=== PATIENT | female | born 1970 | race Caucasian/White ===

== ENCOUNTER 2021-02-11 10:15 | Outpatient (CLI) | payer OTHER ==
--- NOTE | 2021-02-11 11:46 | XRAY Report ---
PROCEDURE: Foot 3 View RT INDICATIONS: PAIN EDEMIA..INJURY RT FOOT TECHNIQUE: 3 views of the foot were acquired. COMPARISON: Similar study right foot 11/18/2020. FINDINGS: Bones: No dislocations. No suspicious bony lesions. There is a transverse fracture involving the d istal diaphysis of the fourth metatarsal bone, slightly angulated laterally at the fracture plane, wi th callus bridging the fracture plane, in an area previously normal in late October of this year. The p resence of callus indicates subacute fracture at some point between 11/18/2020 and the current study. Soft tissues: No tibiotalar joint effusion. Achilles tendon appears normal. IMPRESSION: Subacute fracture distal diaphysis fourth metatarsal bone, with associated slight lateral angulation abnormality and callus bridging the fracture plane. The comparison study did not show evidence of str ess reaction or stress fracture in late October of this year. Reviewed by: César Bazan MD on 02/11/2021 11:45 AM PDT Approved by: César Bazan MD on 02/11/2021 11:45 AM PDT Station ID: [id number]
== END 2021-02-11 10:16 | disposition home or self-care (01) ==
LOC: DI 10:15
PROVIDERS: ATTEND Podiatrist
DX: S92.341A Displaced fracture of fourth metatarsal bone, right foot, initial encounter for closed fracture (principal)

== ENCOUNTER 2021-03-13 14:54 | Outpatient (CLI) | payer OTHER ==
--- NOTE | 2021-03-13 17:14 | XRAY Report ---
PROCEDURE: Foot 3 View RT INDICATIONS: RIGHT 4TH METATARSAL FX TECHNIQUE: 3 views of the foot were acquired. COMPARISON: FINDINGS: Bones: Fracture lucency is less distinct indicating healing involving the fourth metatarsal distal sh aft fracture. Bridging callus again noted. No new fractures seen. Background osteoarthritic changes r edemonstrated.. No suspicious bony lesions. Soft tissues: No tibiotalar joint effusion. Achilles tendon appears normal. IMPRESSION: Continued further fourth metatarsal distal shaft fracture. Reviewed by: ANGELLA Salinas on 03/13/2021 5:13 PM PDT Approved by: César Bazan MD on 03/13/2021 5:13 PM PDT Station ID: [id number]
== END 2021-03-13 14:55 | disposition home or self-care (01) ==
LOC: DI 14:54
PROVIDERS: ATTEND Podiatrist
DX: S92.341D Displaced fracture of fourth metatarsal bone, right foot, subsequent encounter for fracture with routine healing (principal)

== ENCOUNTER 2021-04-13 11:31 | Outpatient (CLI) | payer OTHER ==
--- NOTE | 2021-04-13 12:30 | XRAY Report ---
PROCEDURE: Foot 3 View RT INDICATIONS: FRACTURE/RT FOOT TECHNIQUE: 3 views of the foot were acquired. COMPARISON: 02/11/2021 and 11/18/2020 03/13/2021, FINDINGS: Bones: Interval further healing at fourth metatarsal neck fracture site is seen. Alignment of right f oot is anatomic. Small plantar calcaneal enthesophyte is seen. No suspicious bony lesions. Soft tissues: No tibiotalar joint effusion. Achilles tendon appears normal. IMPRESSION: Interval further healing at fourth metatarsal neck fracture site with stable anatomic right foot alig nment. No new fracture or dislocation. Reviewed by: Derik Carty MD on 04/13/2021 12:29 PM PDT Approved by: Derik Carty MD on 04/13/2021 12:29 PM PDT Station ID: [id number]
== END 2021-04-13 11:32 | disposition home or self-care (01) ==
LOC: DI 11:31
PROVIDERS: ATTEND Podiatrist
DX: S92.341D Displaced fracture of fourth metatarsal bone, right foot, subsequent encounter for fracture with routine healing (principal)

== ENCOUNTER 2022-07-29 15:58 | Outpatient (CLI) | payer OTHER ==
--- NOTE | 2022-07-30 08:08 | XRAY Report ---
PROCEDURE: Foot 3 View RT INDICATIONS: RT FOOT PAIN TECHNIQUE: History views of the foot were acquired. COMPARISON: X-ray right foot, 02/11/2021, 03/13/2021 and 04/13/2021 FINDINGS: Bones: No acute fractures or dislocations. Old healed fracture and mild deformity of the distal four th metatarsal shaft. No suspicious bony lesions. Mild osteoarthritic changes at the talonavicular ginger int, tarsometatarsal joints, first metatarsophalangeal joint and multiple interphalangeal joints. Hadley caneal spurring. Soft tissues: No tibiotalar joint effusion. Achilles tendon appears normal. IMPRESSION: 1. No acute osseous abnormalities. 2. Osteoarthritis and calcaneal spurring. Reviewed by: Clif Wheeler MD on 07/30/2022 8:07 AM PST Approved by: Clif Wheeler MD on 07/30/2022 8:07 AM PST Station ID: [id number]
== END 2022-07-29 15:59 | disposition home or self-care (01) ==
LOC: DI 15:58
PROVIDERS: ATTEND Podiatrist
DX: M19.071 Primary osteoarthritis, right ankle and foot (principal); M77.31 Calcaneal spur, right foot